=== PATIENT | female | born 1975 | race Caucasian/White ===

== ENCOUNTER 2016-07-04 16:38 | Emergency (ER) | payer OTHER ==
[2016-07-05 01:14] LABS: HEMOGLOBIN 14.6 gm/dl (12.3-15.3); RED BLOOD COUNT 4.55 M/UL (4.00-5.10); WHITE BLOOD COUNT 14.4 K/UL (4.5-11.0)
[2016-07-05 01:33] LABS: BUN/CREATININE RATIO 15 (0-10)
== END 2016-07-05 06:32 | disposition home or self-care (01) ==
LOC: ER1 16:38
PROVIDERS: Family Medicine
DX: R42 Dizziness and giddiness (principal); R51 Headache; R11.2 Nausea with vomiting, unspecified; N30.01 Acute cystitis with hematuria; G43.909 Migraine, unspecified, not intractable, without status migrainosus; Z88.0 Allergy status to penicillin; Z79.899 Other long term (current) drug therapy
CPT/HCPCS: 36415; 70450; 71010; 80053; 81001; 82550; 82553; 83874; 84484; 84703; 85025; 87086; 93005; 96361; 96374; 96375; 99284; J1885; J2405